=== PATIENT | female | born 1930 | race Caucasian/White ===

== ENCOUNTER 2017-01-28 20:14 | Emergency (ER) | payer MEDICARE ==
[~2017-01-28] VITALS: Ht 162.6 cm; Wt 53.5 kg
[2017-01-28 20:14] VITALS: BP 154/109; PULSE 94; RESP 16; TEMP 97.6; O2SAT 98
--- NOTE | 2017-01-28 20:15 | NUR ---
Placed in room 03 . Placed on cardiac rehabilitation program director, blood pressure machine and pulse oximeter. To gown for exam. Side rails up. Report given to ARIC Ron.
--- NOTE | 2017-01-28 20:25 | NUR ---
Pt BIB ambulance , EMT reported that pt is here for back pain. Pt currently denies any pain at the moment, stated she did not fall or hurt her head. Pt A&Ox4, denies SOB or chestpain, denies N/V/D. Skin intact. Will continue to monitor
--- NOTE | 2017-01-28 20:25 | NUR ---
Pt BIB ambulance for c/o chronic lower back pain per EMT. Pt A&Ox4, denies SOB or chestpain, denies N/V/D. denies any fall or injury. Skin intact. Will continue to monitor
--- NOTE | 2017-01-28 20:56 | NUR ---
MD etienne at bedside examining pt
--- NOTE | 2017-01-28 21:51 | NUR ---
Spoke to Jeny , boring mill set up operator, jeny stated " Why don't you guys check her for the back, for UTi, anything!" Jeny was explained that MD Ware already evaluated pt and determine pt will be discharged. Jeny was asked to come and pick pt up. Jeny hung up on RN
--- NOTE | 2017-01-28 21:52 | NUR ---
MD etienne notified regarding animal caretaker concerns. acknowledged verbally.
[2017-01-28 22:15] VITALS: BP 135/65; PULSE 85; RESP 16; TEMP 97.6; O2SAT 98
--- NOTE | 2017-01-28 22:15 | NUR ---
Patient caregiver given written and verbal discharge instructions and verbalizes understanding. ER MD discussed with patient the results and treatment provided. Patient in stable condition. ID arm band removed. Rx of Flexeril given. Patient educated on pain management and to follow up with PMD. Pain Scale 0/10. Opportunity for questions provided and answered by both MD and bar staff.
== END 2017-01-28 22:15 | disposition home or self-care (01) ==
LOC: SED 20:14
DX: M62.838 Other muscle spasm (principal)
CPT/HCPCS: 99283